=== PATIENT | male | born 2000 | race Asian ===

== ENCOUNTER 2021-06-08 04:54 | Emergency (ER) | payer OTHER ==
[~2021-06-08] VITALS: Ht 167.6 cm; Wt 83.5 kg
[2021-06-08 05:06] VITALS: BP 134/67
[2021-06-08 06:33] VITALS: BP 134/67
--- NOTE | 2021-06-08 06:33 | NUR ---
Patient discharged with v/s stable. Written and verbal after care instructions given and explained. Patient verbalized understanding. Ambulatory with steady gait. All questions addressed prior to discharge. Advised to follow up with PMD.
== END 2021-06-08 06:33 | disposition home or self-care (01) ==
LOC: MED 04:54
DX: M25.512 Pain in left shoulder (principal)
CPT/HCPCS: 93005; 99283

== ENCOUNTER 2023-09-11 23:20 | Emergency (ER) | payer OTHER ==
[~2023-09-11] VITALS: Ht 167.6 cm; Wt 88.5 kg
[2023-09-11 23:30] VITALS: BP 130/74; PULSE 95; RESP 18; TEMP 98.4; O2SAT 98
[2023-09-12] MEDS: ACETAMINOPHEN EXTRA STRENGTH 500 MG TAB PO ONE (01:24)
[2023-09-12] MEDS: KETOROLAC 30 MG/ML VIAL IM ONE (01:26)
[2023-09-12 01:44] VITALS: BP 130/74; PULSE 95; RESP 18; TEMP 98.4; O2SAT 98
== END 2023-09-12 01:44 | disposition home or self-care (01) ==
LOC: MED 23:20
DX: S50.02XA Contusion of left elbow, initial encounter (principal); W01.198A Fall on same level from slipping, tripping and stumbling with subsequent striking against other object, initial encounter; Y93.89 Activity, other specified; Y92.89 Other specified places as the place of occurrence of the external cause; Y99.8 Other external cause status
CPT/HCPCS: 29105; 73080; 96372; 99283; J1885